=== PATIENT | female | born 1950 | race Caucasian/White ===

== ENCOUNTER 2017-11-28 13:22 | Inpatient (IN) ==
[2017-11-28] MEDS ORDERED: SODIUM CHLORIDE 0.9% 1,000 ML IV STA (13:57)
[2017-11-28] MEDS ORDERED: ONDANSETRON 4 MG/2 ML VIAL IV STA (13:57)
[2017-11-28 14:04] LABS: ABG Base Excess -10.4 MMOL/L (-2.5-2.5); ABG HCO3 16.5 MMOL/L (20-26); ABG Oxygen Saturation 99.6 % (95-100); ABG PCO2 32.2 MM HG (35-48); ABG PH 7.287 (7.35-7.45); ABG TCO2 13.3 MMOL/L (23-27)
[2017-11-28] MEDS ORDERED: SODIUM BICARBONATE 50 MEQ/50 ML VIAL IV STA (14:15)
[2017-11-28] MEDS ORDERED: SODIUM BICARBONATE 50 MEQ/50 ML SYRINGE IV ONE (14:58)
[2017-11-28 15:55] LABS: Basophils % 0.2 % (0.0-0.8); Eosinophils # 0.1 10*3/uL (0.0-0.87); Immature Granulocytes % 0.5 %; Immature Granulocytes Absolute 0.06 #; Lymphocytes # 0.8 10*3/uL (1.4-4.0); Lymphocytes % 6.2 % (21.3-54.2); Mean Corpuscular HGB Conc 34.9 GM/DL (32-36); Mean Corpuscular Hemoglobin 31 PG (27-34); Mean Corpuscular Volume 89.4 FL (87-102); Mean Platelet Volume 9.7 FL (9.6-12.0); Monocytes # 0.6 10*3/uL (0.11-0.8); Monocytes % 4.8 % (1.7-12.7); Neutrophils # 10.9 10*3/uL (1.4-7.4); Neutrophils % 87.3 % (38.7-73.9); Platelet Count 361 T/CUMM (130-400); Red Blood Count 4.81 MC/CUMM (3.8-5.5); Red Cell Distribution Width 14.5 % (9.3-17.3); White Blood Count 12.5 T/CUMM (4-12)
[2017-11-28 16:03] LABS: PT Patient Result 10.2 SECS
[2017-11-28 16:19] LABS: Salicylate < 2.8 MG/DL (2.8-20)
[2017-11-28 16:21] LABS: Acetaminophen < 2.0 UG/ML (10-30); Apearance,Urine CLEAR (Clear); Bilirubin,Urine Negative (Negative); Blood, Urine Negative (Negative); Glucose,Urine (UA) Negative (Negative); Ketones,Urine Negative (Negative); Mucus,Urine Occasional /LPF (Occasional); Nitrite,Urine Negative (Negative); Protein,Urine 30 MG/DL; RBC,Urine 13 /HPF (0-4); Renal Epithelial Cells,Urine Occasional /HPF (<1); Squamous Epithelial Cell,Urine Occasional /HPF (0-10); Urine Color Yellow (Yellow); Urine Specific Gravity 1.011 (1.001-1.035); Urine Urobilinogen < 2.0 EU/DL (0.2-1.0)
[2017-11-28 16:26] LABS: Alanine Aminotransferase 130 U/L (13-56); Albumin 3.4 G/DL (3.4-5.0); Alkaline Phosphatase 170 U/L (45-117); Aspartate Amino Transferase 219 U/L (0-37); Blood Urea Nitrogen 19 MG/DL (7-18); CKMB % 1.3 %; Calcium 7.8 MG/DL (8.5-10.1); Glucose 118 MG/DL (74-106); Osmolality,Calculated 288.8 MOS/KG (273-304); Potassium 3.1 MMOL/L (3.5-5.1); Sodium 144 MMOL/L (136-145); Total Protein 6.9 G/DL (6.4-8.3)
[2017-11-28 16:34] LABS: Barbiturates Screen,Urine Negative (Negative); Benzodiazepines Screen,Urine Positive (Negative); Cannabinoid Screen,Urine Negative (Negative); Opiate Screen,Urine Positive (Negative); Phencyclidine Screen,Urine Negative (Negative)
[2017-11-28] MEDS ORDERED: PROPOFOL 1,000 MG/100 ML BOTTLE IV ONE (16:59)
[2017-11-28] MEDS ORDERED: VECURONIUM 10 MG VIAL IV ONE (16:59)
[2017-11-28] MEDS ORDERED: VECURONIUM 10 MG VIAL IV STA (17:21)
[2017-11-28] MEDS: PROPOFOL 1,000 MG/100 ML BOTTLE IV SCH (17:30)
[2017-11-28] MEDS ORDERED: ALBUTEROL 2.5 MG/3 ML NEB RESP TX PRN ×2 (18:32→18:36)
[2017-11-28] MEDS ORDERED: ONDANSETRON 4 MG/2 ML VIAL IV PRN (18:32)
[2017-11-28] MEDS: ALBUTEROL/IPRATROPIUM 3 ML NEB RESP TX SCH (19:39)
[2017-11-28] MEDS: SODIUM CHLORIDE 0.9% 1,000 ML IV SCH (19:50)
[2017-11-28] MEDS ORDERED: PIPERACILLIN/TAZOBACTAM 3,375 MG VIAL IV ONE (19:52)
[2017-11-28] MEDS ORDERED: SODIUM CHLORIDE 0.9% 100 ML IV ONE (19:52)
[2017-11-28] MEDS: methylPREDNISolone SOD SUC 125 MG/2 ML VIAL IV SCH (19:56)
[2017-11-28] MEDS: PIPERACILLIN/TAZOBACTAM 3,375 MG in SODIUM CHLORIDE 0.9% 100 ML IV SCH (19:58)
[2017-11-28] MEDS: PANTOPRAZOLE 40 MG VIAL IV SCH (20:00)
[2017-11-28 21:58] LABS: ABG Base Excess -7.4 MMOL/L (-2.5-2.5); ABG HCO3 18.6 MMOL/L (20-26); ABG Oxygen Saturation 99.3 % (95-100); ABG PCO2 29.6 MM HG (35-48); ABG PH 7.359 (7.35-7.45); ABG TCO2 14.1 MMOL/L (23-27); Pt O2 Delivery Device Ventilator
[2017-11-28] MEDS: LEVOFLOXACIN INJ 750 MG in PREMIX 1 EACH IV SCH (22:04)
[2017-11-29] MEDS: methylPREDNISolone SOD SUC 125 MG/2 ML VIAL IV SCH ×4 (00:38→18:58)
[2017-11-29] MEDS: ALBUTEROL/IPRATROPIUM 3 ML NEB RESP TX SCH ×4 (00:57→19:36)
[2017-11-29] MEDS: PROPOFOL 1,000 MG/100 ML BOTTLE IV SCH ×6 (02:14→21:47)
[2017-11-29] MEDS: PIPERACILLIN/TAZOBACTAM 3,375 MG in SODIUM CHLORIDE 0.9% 100 ML IV SCH ×3 (02:17→18:59)
[2017-11-29 04:17] LABS: ABG Base Excess -5.7 MMOL/L (-2.5-2.5); ABG HCO3 19.8 MMOL/L (20-26); ABG Oxygen Saturation 99.8 % (95-100); ABG PCO2 28.4 MM HG (35-48); ABG PH 7.401 (7.35-7.45); ABG TCO2 15.1 MMOL/L (23-27); Allen Test Positive; Pt O2 Delivery Device Ventilator
[2017-11-29] MEDS: SODIUM CHLORIDE 0.9% 1,000 ML IV SCH ×3 (06:14→22:34)
[2017-11-29 06:27] LABS: Basophils % 0.1 % (0.0-0.8); Hematocrit 38.1 VOL% (35.7-47.0); Hemoglobin 13.8 GM/DL (12.0-16.0); Immature Granulocytes % 0.4 %; Immature Granulocytes Absolute 0.05 #; Lymphocytes # 0.4 10*3/uL (1.4-4.0); Lymphocytes % 3.1 % (21.3-54.2); Mean Corpuscular HGB Conc 36.2 GM/DL (32-36); Mean Corpuscular Hemoglobin 32 PG (27-34); Mean Platelet Volume 9.5 FL (9.6-12.0); Monocytes # 0.1 10*3/uL (0.11-0.8); Monocytes % 0.8 % (1.7-12.7); Neutrophils % 95.6 % (38.7-73.9); Platelet Count 338 T/CUMM (130-400); Red Blood Count 4.33 MC/CUMM (3.8-5.5); Red Cell Distribution Width 14.6 % (9.3-17.3); White Blood Count 11.5 T/CUMM (4-12)
[2017-11-29 06:50] LABS: Anisocytosis 1+; Band Neutrophils 15 % (0-10); Lymphocytes 5 % (20-55); Macrocytosis Slight; Platelet Estimate Normal; Segmented Neutrophils 79 % (50-85); Total Cells Counted 100
[2017-11-29 11:00] LABS: Albumin 2.8 G/DL (3.4-5.0); Bilirubin,Total 0.4 MG/DL (0.2-1.0); Calcium 7.5 MG/DL (8.5-10.1); Osmolality,Calculated 291.7 MOS/KG (273-304); Potassium 2.9 MMOL/L (3.5-5.1); Risk Ratio 3.53; Thyroid Stimulating Hormone 0.194 uIU/ml (0.358-3.74); Total Protein 6.4 G/DL (6.4-8.3); VLDL CHOLESTEROL 34.8 MG/DL
[2017-11-29] MEDS ORDERED: PNEUMOCOCCAL VACCINE (13 VALENT) 0.5 ML SYRINGE IM ONE (17:40)
[2017-11-29] MEDS: PANTOPRAZOLE 40 MG VIAL IV SCH (18:58)
[2017-11-29] MEDS: LEVOFLOXACIN INJ 750 MG in PREMIX 1 EACH IV SCH (22:34)
[2017-11-30] MEDS: ALBUTEROL/IPRATROPIUM 3 ML NEB RESP TX SCH ×4 (00:04→19:05)
[2017-11-30] MEDS: methylPREDNISolone SOD SUC 125 MG/2 ML VIAL IV SCH ×4 (01:30→18:18)
[2017-11-30] MEDS: PROPOFOL 1,000 MG/100 ML BOTTLE IV SCH ×6 (01:31→23:56)
[2017-11-30] MEDS: PIPERACILLIN/TAZOBACTAM 3,375 MG in SODIUM CHLORIDE 0.9% 100 ML IV SCH ×3 (03:34→18:17)
[2017-11-30 05:59] LABS: Hematocrit 32.8 VOL% (35.7-47.0); Hemoglobin 11.5 GM/DL (12.0-16.0); Immature Granulocytes % 0.6 %; Immature Granulocytes Absolute 0.06 #; Lymphocytes # 0.3 10*3/uL (1.4-4.0); Lymphocytes % 3.2 % (21.3-54.2); Mean Corpuscular HGB Conc 35.1 GM/DL (32-36); Mean Corpuscular Hemoglobin 32 PG (27-34); Mean Corpuscular Volume 89.9 FL (87-102); Mean Platelet Volume 10.1 FL (9.6-12.0); Monocytes # 0.2 10*3/uL (0.11-0.8); Monocytes % 1.6 % (1.7-12.7); Neutrophils # 9.9 10*3/uL (1.4-7.4); Neutrophils % 94.6 % (38.7-73.9); Platelet Count 282 T/CUMM (130-400); Red Blood Count 3.65 MC/CUMM (3.8-5.5); Red Cell Distribution Width 15.4 % (9.3-17.3); White Blood Count 10.4 T/CUMM (4-12)
[2017-11-30] MEDS: SODIUM CHLORIDE 0.9% 1,000 ML IV SCH ×3 (06:08→23:06)
[2017-11-30 06:18] LABS: Albumin 2.4 G/DL (3.4-5.0); Bilirubin,Total 0.6 MG/DL (0.2-1.0); Calcium 7.3 MG/DL (8.5-10.1); Osmolality,Calculated 299.1 MOS/KG (273-304); Potassium 2.6 MMOL/L (3.5-5.1); Total Protein 5.8 G/DL (6.4-8.3)
[2017-11-30 06:35] LABS: Anisocytosis 1+; Lymphocytes 2 % (20-55); Platelet Estimate Normal; Segmented Neutrophils 98 % (50-85); Total Cells Counted 100
[2017-11-30 08:12] LABS: Ferritin 88.3 ng/ml (8-252)
[2017-11-30 08:55] LABS: ABG Base Excess -7.5 MMOL/L (-2.5-2.5); ABG HCO3 18.4 MMOL/L (20-26); ABG Oxygen Saturation 99.5 % (95-100); ABG PCO2 23.5 MM HG (35-48); ABG PH 7.424 (7.35-7.45); ABG TCO2 13.6 MMOL/L (23-27)
[2017-11-30] MEDS: PANTOPRAZOLE 40 MG VIAL IV SCH (18:18)
[2017-11-30] MEDS: POTASSIUM CHLORIDE 20 MEQ/15 ML UDCUP PER TUBE PRN ×2 (20:18→23:20)
[2017-11-30] MEDS: LEVOFLOXACIN INJ 750 MG in PREMIX 1 EACH IV SCH (23:09)
[2017-12-01] MEDS: ALBUTEROL/IPRATROPIUM 3 ML NEB RESP TX SCH ×4 (00:32→19:10)
[2017-12-01] MEDS: methylPREDNISolone SOD SUC 125 MG/2 ML VIAL IV SCH ×2 (01:06→06:15)
[2017-12-01] MEDS: POTASSIUM CHLORIDE 20 MEQ/15 ML UDCUP PER TUBE PRN ×2 (01:07→03:03)
[2017-12-01] MEDS: PIPERACILLIN/TAZOBACTAM 3,375 MG in SODIUM CHLORIDE 0.9% 100 ML IV SCH ×3 (03:03→20:18)
[2017-12-01 03:52] LABS: Basophils % 0.1 % (0.0-0.8); Hematocrit 34.1 VOL% (35.7-47.0); Immature Granulocytes % 0.5 %; Immature Granulocytes Absolute 0.05 #; Lymphocytes # 0.4 10*3/uL (1.4-4.0); Lymphocytes % 3.7 % (21.3-54.2); Mean Corpuscular HGB Conc 35.2 GM/DL (32-36); Mean Corpuscular Hemoglobin 32 PG (27-34); Mean Corpuscular Volume 89.5 FL (87-102); Mean Platelet Volume 9.9 FL (9.6-12.0); Monocytes # 0.3 10*3/uL (0.11-0.8); Monocytes % 2.8 % (1.7-12.7); Neutrophils # 9.1 10*3/uL (1.4-7.4); Neutrophils % 92.9 % (38.7-73.9); Platelet Count 279 T/CUMM (130-400); Red Blood Count 3.81 MC/CUMM (3.8-5.5); Red Cell Distribution Width 15.7 % (9.3-17.3); White Blood Count 9.8 T/CUMM (4-12)
[2017-12-01] MEDS: PROPOFOL 1,000 MG/100 ML BOTTLE IV SCH ×2 (04:02→08:48)
[2017-12-01 04:11] LABS: ABG Base Excess -5.8 MMOL/L (-2.5-2.5); ABG HCO3 16.8 MMOL/L (20-26); ABG Oxygen Saturation 98.7 % (95-100); ABG PCO2 25.4 MM HG (35-48); ABG PH 7.438 (7.35-7.45); ABG PO2 199.6 MM HG (80-95); ABG TCO2 17.6 MMOL/L (23-27); Allen Test Positive; Pt O2 Delivery Device Ventilator
[2017-12-01 04:19] LABS: Lymphocytes 7 % (20-55); Platelet Estimate Normal; Segmented Neutrophils 92 % (50-85); Total Cells Counted 100
[2017-12-01 04:33] LABS: Albumin 2.6 G/DL (3.4-5.0); Bilirubin,Total 0.5 MG/DL (0.2-1.0); Calcium 7.4 MG/DL (8.5-10.1); Potassium 2.8 MMOL/L (3.5-5.1); Total Protein 6.3 G/DL (6.4-8.3)
[2017-12-01] MEDS ORDERED: POTASSIUM CHLORIDE INJ 20 MEQ in DEXTROSE 5% NACL 0.45% 1,000 ML IV SCH (08:30)
[2017-12-01] MEDS: methylPREDNISolone SOD SUC 40 MG/1 ML VIAL IV SCH ×3 (08:56→23:10)
[2017-12-01] MEDS: DEXT 5% NACL 0.45% KCL 20 MEQ 20 MEQ/1,000 ML BAG IV SCH ×2 (08:56→17:01)
[2017-12-01] MEDS: SODIUM CHLORIDE 0.9% 1,000 ML IV SCH (09:08)
[2017-12-01] MEDS: POTASSIUM CHLORIDE 20 MEQ PACK PO PRN ×4 (11:27→17:59)
[2017-12-01 12:07] LABS: ABG Base Excess -5.8 MMOL/L (-2.5-2.5); ABG HCO3 16.8 MMOL/L (20-26); ABG Oxygen Saturation 98.2 % (95-100); ABG PCO2 26.1 MM HG (35-48); ABG PH 7.427 (7.35-7.45); ABG PO2 121.4 MM HG (80-95); ABG TCO2 17.6 MMOL/L (23-27)
[2017-12-01] MEDS ORDERED: POTASSIUM CHLORIDE RIDER 20 MEQ in PREMIX 1 EACH IV PRN (16:02)
[2017-12-01] MEDS: PANTOPRAZOLE 40 MG VIAL IV SCH (20:17)
[2017-12-01] MEDS: DONEPEZIL 5 MG TABLET PO SCH (20:18)
[2017-12-02] MEDS: DEXT 5% NACL 0.45% KCL 20 MEQ 20 MEQ/1,000 ML BAG IV SCH ×2 (00:52→09:21)
[2017-12-02] MEDS: LEVOFLOXACIN INJ 750 MG in PREMIX 1 EACH IV SCH (00:52)
[2017-12-02] MEDS: ALBUTEROL/IPRATROPIUM 3 ML NEB RESP TX SCH ×4 (01:10→19:58)
[2017-12-02] MEDS: POTASSIUM CHLORIDE RIDER 10 MEQ in PREMIX 1 EACH IV PRN ×6 (01:30→07:27)
[2017-12-02] MEDS: PIPERACILLIN/TAZOBACTAM 3,375 MG in SODIUM CHLORIDE 0.9% 100 ML IV SCH ×3 (03:21→22:43)
[2017-12-02 03:40] LABS: ABG HCO3 21.9 MMOL/L (20-26); ABG Oxygen Saturation 96.5 % (95-100); ABG PCO2 27.9 MM HG (35-48); ABG PH 7.455 (7.35-7.45); ABG PO2 84.9 MM HG (80-95); ABG TCO2 17.2 MMOL/L (23-27)
[2017-12-02 04:43] LABS: Basophils % 0.2 % (0.0-0.8); Hematocrit 34.5 VOL% (35.7-47.0); Hemoglobin 12.6 GM/DL (12.0-16.0); Immature Granulocytes Absolute 0.11 #; Lymphocytes # 0.5 10*3/uL (1.4-4.0); Lymphocytes % 4.7 % (21.3-54.2); Mean Corpuscular HGB Conc 36.5 GM/DL (32-36); Mean Corpuscular Hemoglobin 32 PG (27-34); Mean Corpuscular Volume 86.9 FL (87-102); Mean Platelet Volume 10.2 FL (9.6-12.0); Monocytes # 0.5 10*3/uL (0.11-0.8); Monocytes % 4.5 % (1.7-12.7); Neutrophils # 9.6 10*3/uL (1.4-7.4); Neutrophils % 89.6 % (38.7-73.9); Platelet Count 307 T/CUMM (130-400); Red Blood Count 3.97 MC/CUMM (3.8-5.5); Red Cell Distribution Width 15.6 % (9.3-17.3); White Blood Count 10.7 T/CUMM (4-12)
[2017-12-02 05:02] LABS: Albumin 2.7 G/DL (3.4-5.0); Bilirubin,Total 0.6 MG/DL (0.2-1.0); Calcium 7.1 MG/DL (8.5-10.1); Potassium 2.8 MMOL/L (3.5-5.1); Total Protein 6.7 G/DL (6.4-8.3)
[2017-12-02 05:14] LABS: Band Neutrophils 1 % (0-10); Hypochromasia 1+; Lymphocytes 7 % (20-55); Ovalocytes Slight; Platelet Estimate Adequate; Segmented Neutrophils 89 % (50-85); Total Cells Counted 100
[2017-12-02] MEDS: QUEtiapine 25 MG TABLET PO SCH ×2 (09:20→22:42)
[2017-12-02] MEDS: methylPREDNISolone SOD SUC 40 MG/1 ML VIAL IV SCH (09:20)
[2017-12-02] MEDS ORDERED: MAGNESIUM SULF RIDER 4 GM in PREMIX 1 EACH IV PRN (10:45)
[2017-12-02] MEDS ORDERED: MAGNESIUM SULF RIDER 2 GM in PREMIX 1 EACH IV PRN (10:45)
[2017-12-02] MEDS: POTASSIUM CHLORIDE INJ 20 MEQ, MAGNESIUM SULF INJ 1 GM in DEXTROSE 5% NACL 0.45% 1,000 ML IV SCH (14:56)
[2017-12-02] MEDS: PANTOPRAZOLE 40 MG VIAL IV SCH (22:42)
[2017-12-02] MEDS: DONEPEZIL 5 MG TABLET PO SCH (22:42)
[2017-12-03] MEDS: ALBUTEROL/IPRATROPIUM 3 ML NEB RESP TX SCH ×4 (00:46→20:02)
[2017-12-03] MEDS: LEVOFLOXACIN INJ 750 MG in PREMIX 1 EACH IV SCH ×2 (03:10→21:27)
[2017-12-03 04:20] LABS: ABG Base Excess -2.5 MMOL/L (-2.5-2.5); ABG HCO3 20.4 MMOL/L (20-26); ABG Oxygen Saturation 95.8 % (95-100); ABG PCO2 30.2 MM HG (35-48); ABG PH 7.448 (7.35-7.45); ABG PO2 83.7 MM HG (80-95); ABG TCO2 21.4 MMOL/L (23-27); Allen Test Positive
[2017-12-03 05:45] LABS: Basophils % 0.4 % (0.0-0.8); Eosinophils # 0.1 10*3/uL (0.0-0.87); Eosinophils % 0.8 % (0.00-10.9); Hemoglobin 13.4 GM/DL (12.0-16.0); Immature Granulocytes % 1.6 %; Immature Granulocytes Absolute 0.12 #; Lymphocytes # 2.2 10*3/uL (1.4-4.0); Lymphocytes % 29.3 % (21.3-54.2); Mean Corpuscular HGB Conc 36.2 GM/DL (32-36); Mean Corpuscular Hemoglobin 32 PG (27-34); Mean Corpuscular Volume 87.5 FL (87-102); Mean Platelet Volume 9.8 FL (9.6-12.0); Monocytes # 0.8 10*3/uL (0.11-0.8); Monocytes % 9.9 % (1.7-12.7); Neutrophils # 4.4 10*3/uL (1.4-7.4); Platelet Count 285 T/CUMM (130-400); Red Blood Count 4.23 MC/CUMM (3.8-5.5); Red Cell Distribution Width 15.8 % (9.3-17.3); White Blood Count 7.5 T/CUMM (4-12)
[2017-12-03 06:02] LABS: Calcium 7.5 MG/DL (8.5-10.1); Osmolality,Calculated 288.6 MOS/KG (273-304)
[2017-12-03 06:04] LABS: Potassium 2.3 MMOL/L (3.5-5.1)
[2017-12-03] MEDS ORDERED: POTASSIUM CHLORIDE 20 MEQ TABLET PO STA (06:30)
[2017-12-03] MEDS: PIPERACILLIN/TAZOBACTAM 3,375 MG in SODIUM CHLORIDE 0.9% 100 ML IV SCH ×2 (06:37→17:16)
[2017-12-03] MEDS: POTASSIUM CHLORIDE INJ 20 MEQ, MAGNESIUM SULF INJ 1 GM in DEXTROSE 5% NACL 0.45% 1,000 ML IV SCH ×3 (06:39→18:00)
[2017-12-03] MEDS: methylPREDNISolone SOD SUC 40 MG/1 ML VIAL IV SCH (09:18)
[2017-12-03] MEDS: QUEtiapine 25 MG TABLET PO SCH ×2 (09:18→21:27)
[2017-12-03] MEDS: POTASSIUM CHLORIDE 20 MEQ PACK PO PRN ×4 (09:18→15:17)
[2017-12-03] MEDS: PANTOPRAZOLE 40 MG VIAL IV SCH (18:36)
[2017-12-03] MEDS: DONEPEZIL 5 MG TABLET PO SCH (21:27)
[2017-12-04] MEDS: POTASSIUM CHLORIDE 20 MEQ TABLET PO PRN ×4 (00:04→17:40)
[2017-12-04] MEDS: POTASSIUM CHLORIDE INJ 20 MEQ, MAGNESIUM SULF INJ 1 GM in DEXTROSE 5% NACL 0.45% 1,000 ML IV SCH ×2 (00:05→09:37)
[2017-12-04] MEDS: PIPERACILLIN/TAZOBACTAM 3,375 MG in SODIUM CHLORIDE 0.9% 100 ML IV SCH (00:37)
[2017-12-04] MEDS: ALBUTEROL/IPRATROPIUM 3 ML NEB RESP TX SCH ×4 (00:43→19:25)
[2017-12-04] MEDS: LORazepam 2 MG/1 ML VIAL IM PRN ×4 (02:42→21:41)
[2017-12-04 06:14] LABS: Basophils % 0.3 % (0.0-0.8); Eosinophils # 0.2 10*3/uL (0.0-0.87); Eosinophils % 2.3 % (0.00-10.9); Hematocrit 36.6 VOL% (35.7-47.0); Hemoglobin 12.7 GM/DL (12.0-16.0); Immature Granulocytes % 1.3 %; Lymphocytes # 1.8 10*3/uL (1.4-4.0); Lymphocytes % 23.5 % (21.3-54.2); Mean Corpuscular HGB Conc 34.7 GM/DL (32-36); Mean Corpuscular Hemoglobin 32 PG (27-34); Mean Platelet Volume 9.7 FL (9.6-12.0); Monocytes # 0.8 10*3/uL (0.11-0.8); Monocytes % 10.4 % (1.7-12.7); Neutrophils # 4.7 10*3/uL (1.4-7.4); Neutrophils % 62.2 % (38.7-73.9); Platelet Count 269 T/CUMM (130-400); Red Blood Count 4.02 MC/CUMM (3.8-5.5); Red Cell Distribution Width 15.7 % (9.3-17.3); White Blood Count 7.5 T/CUMM (4-12)
[2017-12-04 06:47] LABS: Calcium 7.5 MG/DL (8.5-10.1); Osmolality,Calculated 284.8 MOS/KG (273-304); Potassium 3.4 MMOL/L (3.5-5.1)
[2017-12-04 07:00] LABS: Albumin 2.8 G/DL (3.4-5.0); Bilirubin,Total 0.9 MG/DL (0.2-1.0); Calcium 7.9 MG/DL (8.5-10.1); Potassium 3.4 MMOL/L (3.5-5.1); Total Protein 6.3 G/DL (6.4-8.3)
[2017-12-04] MEDS: QUEtiapine 25 MG TABLET PO SCH ×2 (09:01→20:39)
[2017-12-04] MEDS: methylPREDNISolone SOD SUC 40 MG/1 ML VIAL IV SCH (09:02)
[2017-12-04] MEDS: ACYCLOVIR 5% OINT 5 GM TUBE TOP SCH ×4 (10:20→21:40)
[2017-12-04] MEDS: DEXT 5% NACL 0.45% KCL 20 MEQ 20 MEQ/1,000 ML BAG IV SCH ×2 (15:00→18:20)
[2017-12-04] MEDS: PANTOPRAZOLE 40 MG VIAL IV SCH (18:24)
[2017-12-04] MEDS: DONEPEZIL 5 MG TABLET PO SCH (20:39)
[2017-12-04] MEDS ORDERED: QUEtiapine 100 MG TABLET PO ONE (23:12)
[2017-12-04] MEDS ORDERED: QUEtiapine 25 MG TABLET PO ONE (23:30)
[2017-12-05] MEDS: ALBUTEROL/IPRATROPIUM 3 ML NEB RESP TX SCH ×2 (00:12→07:30)
[2017-12-05] MEDS: LORazepam 2 MG/1 ML VIAL IM PRN (03:17)
[2017-12-05] MEDS: DEXT 5% NACL 0.45% KCL 20 MEQ 20 MEQ/1,000 ML BAG IV SCH ×2 (04:15→09:17)
[2017-12-05] MEDS: ACYCLOVIR 5% OINT 5 GM TUBE TOP SCH ×2 (05:29→09:15)
[2017-12-05 06:40] LABS: Basophils % 0.1 % (0.0-0.8); Eosinophils # 0.2 10*3/uL (0.0-0.87); Eosinophils % 3.5 % (0.00-10.9); Hematocrit 36.1 VOL% (35.7-47.0); Hemoglobin 12.7 GM/DL (12.0-16.0); Immature Granulocytes % 0.7 %; Immature Granulocytes Absolute 0.05 #; Lymphocytes # 1.7 10*3/uL (1.4-4.0); Lymphocytes % 24.7 % (21.3-54.2); Mean Corpuscular HGB Conc 35.2 GM/DL (32-36); Mean Corpuscular Hemoglobin 32 PG (27-34); Mean Corpuscular Volume 89.8 FL (87-102); Mean Platelet Volume 10.6 FL (9.6-12.0); Monocytes # 0.6 10*3/uL (0.11-0.8); Monocytes % 8.2 % (1.7-12.7); Neutrophils # 4.3 10*3/uL (1.4-7.4); Neutrophils % 62.8 % (38.7-73.9); Platelet Count 218 T/CUMM (130-400); Red Blood Count 4.02 MC/CUMM (3.8-5.5); Red Cell Distribution Width 15.6 % (9.3-17.3); White Blood Count 6.9 T/CUMM (4-12)
[2017-12-05 07:20] LABS: Hypochromasia 1+; Microcytosis 1+; Ovalocytes Slight
[2017-12-05 07:21] LABS: Platelet Estimate Adequate
[2017-12-05 08:15] VITALS: BP 115/80
[2017-12-05] MEDS: QUEtiapine 25 MG TABLET PO SCH (09:14)
[2017-12-05] MEDS: methylPREDNISolone SOD SUC 40 MG/1 ML VIAL IV SCH (09:18)
== END 2017-12-05 10:30 | disposition home health service (06) | DRG 917 ==
LOC: EDUNIT# → EDBD → N.ED 13:22 → N.EDINP 18:29 → N.CC 20:47 → N.2E 12-02 13:20
PROVIDERS: ADMIT Family Medicine; ATTEND Family Medicine

== ENCOUNTER 2018-08-09 12:25 | Inpatient (IN) ==
[2018-08-09] MEDS ORDERED: ONDANSETRON 4 MG/2 ML VIAL IV STA (13:10)
[2018-08-09] MEDS ORDERED: SODIUM CHLORIDE 0.9% 1,000 ML IV STA (13:10)
[2018-08-09 13:52] LABS: Basophils % 0.3 % (0.0-0.8); Eosinophils % 0.2 % (0.00-10.9); Hematocrit 28.2 VOL% (35.7-47.0); Hemoglobin 9.6 GM/DL (12.0-16.0); Immature Granulocytes % 0.5 %; Immature Granulocytes Absolute 0.03 #; Lymphocytes # 0.7 10*3/uL (1.4-4.0); Lymphocytes % 11.4 % (21.3-54.2); Mean Corpuscular Volume 91.6 FL (87-102); Mean Platelet Volume 10.1 FL (9.6-12.0); Monocytes % 5.7 % (1.7-12.7); NRBC # 0.03 10*3/uL; Neutrophils % 81.9 % (38.7-73.9); Platelet Count 375 T/CUMM (130-400); Red Blood Count 3.08 MC/CUMM (3.8-5.5); Red Cell Distribution Width 15.9 % (9.3-17.3); White Blood Count 5.8 T/CUMM (4-12)
[2018-08-09 14:15] LABS: Calcium 8.3 MG/DL (8.5-10.1); Osmolality,Calculated 276.1 MOS/KG (273-304); Total Protein 7.1 G/DL (6.4-8.3)
[2018-08-09] MEDS ORDERED: ACETAMINOPHEN 325 MG TABLET PO PRN (14:43)
[2018-08-09] MEDS ORDERED: ONDANSETRON 4 MG/2 ML VIAL IV PRN (14:43)
[2018-08-09] MEDS ORDERED: DEXTROSE 5% NACL 0.9% 1,000 ML IV SCH ×2 (15:00→21:00)
[2018-08-09] MEDS: ENOXAPARIN 40 MG/0.4 ML SYRINGE SUBCUT SCH (16:32)
[2018-08-09] MEDS: DOCUSATE SODIUM 100 MG CAPSULE PO SCH (20:40)
[2018-08-10] MEDS ORDERED: DEXTROSE 5% NACL 0.9% 1,000 ML IV SCH (02:00)
[2018-08-10 07:12] LABS: Apearance,Urine CLEAR (Clear); Bacteria,Urine Occasional /HPF (Few); Bilirubin,Urine Negative (Negative); Blood, Urine Negative (Negative); Glucose,Urine (UA) Negative (Negative); Ketones,Urine 80 mg/dL (Negative); Mucus,Urine Occasional /LPF (Occasional); Nitrite,Urine Negative (Negative); Protein,Urine Negative; RBC,Urine 1 /HPF (0-4); Squamous Epithelial Cell,Urine Occasional /HPF (0-10); Urine Color Yellow (Yellow); Urine Specific Gravity 1.014 (1.001-1.035); Urine Urobilinogen < 2.0 EU/DL (0.2-1.0); WBC,Urine 2 /HPF (0-6)
[2018-08-10] MEDS ORDERED: FUROSEMIDE 20 MG TABLET PO SCH (09:00)
[2018-08-10] MEDS: DEXT 5% NACL 0.9% KCL 20 MEQ 20 MEQ/1,000 ML BAG IV SCH ×2 (09:34→18:38)
[2018-08-10] MEDS: DOCUSATE SODIUM 100 MG CAPSULE PO SCH ×2 (09:37→22:45)
[2018-08-10] MEDS: SPIRONOLACTONE 25 MG TABLET PO SCH (09:37)
[2018-08-10] MEDS: PANTOPRAZOLE 40 MG TABLET PO SCH (09:37)
[2018-08-10] MEDS: ESTROGENS (CONJ) 0.625 MG TABLET PO SCH (09:37)
[2018-08-10] MEDS: POTASSIUM CHLORIDE 20 MEQ TABLET PO SCH ×2 (09:38→22:45)
[2018-08-10] MEDS ORDERED: DONEPEZIL 5 MG TABLET PO SCH (21:00)
[2018-08-10] MEDS: MEMANTINE 5 MG TABLET PO SCH (22:45)
[2018-08-10] MEDS: DONEPEZIL 10 MG TABLET PO SCH (22:45)
[2018-08-10] MEDS: ENOXAPARIN 40 MG/0.4 ML SYRINGE SUBCUT SCH (22:45)
[2018-08-11] MEDS: DEXT 5% NACL 0.9% KCL 20 MEQ 20 MEQ/1,000 ML BAG IV SCH (02:20)
[2018-08-11 05:08] LABS: Basophils % 0.3 % (0.0-0.8); Eosinophils % 0.5 % (0.00-10.9); Immature Granulocytes % 0.5 %; Immature Granulocytes Absolute 0.02 #; Lymphocytes # 1.1 10*3/uL (1.4-4.0); Lymphocytes % 27.8 % (21.3-54.2); Mean Corpuscular HGB Conc 33.5 GM/DL (32-36); Mean Corpuscular Volume 93.2 FL (87-102); Monocytes % 6.1 % (1.7-12.7); Neutrophils % 64.8 % (38.7-73.9); Platelet Count 292 T/CUMM (130-400); Red Blood Count 1.92 MC/CUMM (3.8-5.5); Red Cell Distribution Width 16.5 % (9.3-17.3); White Blood Count 3.9 T/CUMM (4-12)
[2018-08-11 05:15] LABS: Hematocrit 17.9 VOL% (35.7-47.0)
[2018-08-11 05:35] LABS: Risk Ratio 3.14; VLDL CHOLESTEROL 25.6 MG/DL
[2018-08-11 05:49] LABS: Alanine Aminotransferase < 9 U/L (13-56); Albumin 2.1 G/DL (3.4-5.0); Alkaline Phosphatase 50 U/L (45-117); Aspartate Amino Transferase 13 U/L (0-37); Blood Urea Nitrogen 10 MG/DL (7-18); Calcium 7.2 MG/DL (8.5-10.1); Glucose 112 MG/DL (74-106); Thyroid Stimulating Hormone 0.629 uIU/ml (0.358-3.74); Total Protein 4.8 G/DL (6.4-8.3)
[2018-08-11 06:07] LABS: Basophils % 0.3 % (0.0-0.8); Eosinophils % 0.8 % (0.00-10.9); Immature Granulocytes % 0.5 %; Immature Granulocytes Absolute 0.02 #; Lymphocytes # 1.2 10*3/uL (1.4-4.0); Lymphocytes % 31.3 % (21.3-54.2); Mean Corpuscular HGB Conc 33.9 GM/DL (32-36); Mean Corpuscular Volume 93.5 FL (87-102); Mean Platelet Volume 9.8 FL (9.6-12.0); Monocytes % 6.9 % (1.7-12.7); Neutrophils % 60.2 % (38.7-73.9); Platelet Count 280 T/CUMM (130-400); Red Blood Count 1.86 MC/CUMM (3.8-5.5); Red Cell Distribution Width 16.5 % (9.3-17.3); White Blood Count 3.8 T/CUMM (4-12)
[2018-08-11 06:11] LABS: Hematocrit 17.4 VOL% (35.7-47.0); Hemoglobin 5.9 GM/DL (12.0-16.0)
[2018-08-11] MEDS ORDERED: SODIUM CHLORIDE 0.9% 1,000 ML IV PRN (07:35)
[2018-08-11] MEDS ORDERED: SODIUM CHLORIDE 0.9% 1,000 ML IV ONE ×2 (07:35→08:00)
[2018-08-11 08:41] LABS: Basophils % 0.3 % (0.0-0.8); Immature Granulocytes % 0.5 %; Immature Granulocytes Absolute 0.02 #; Lymphocytes # 1.2 10*3/uL (1.4-4.0); Mean Corpuscular HGB Conc 33.5 GM/DL (32-36); Mean Corpuscular Volume 94.2 FL (87-102); Mean Platelet Volume 9.7 FL (9.6-12.0); Monocytes % 8.3 % (1.7-12.7); NRBC # 0.02 10*3/uL; Neutrophils % 58.9 % (38.7-73.9); Platelet Count 280 T/CUMM (130-400); Red Cell Distribution Width 16.7 % (9.3-17.3); White Blood Count 3.8 T/CUMM (4-12)
[2018-08-11 08:47] LABS: Hematocrit 17.9 VOL% (35.7-47.0)
[2018-08-11 09:29] LABS: Folate > 24.0 NG/ML (5.4-24.0); Vitamin B12 299 PG/ML (211-911)
[2018-08-11 09:51] LABS: Sedimentation Rate-Westergren 55 MM/HR (0-30)
[2018-08-11] MEDS: DOCUSATE SODIUM 100 MG CAPSULE PO SCH ×2 (10:33→21:17)
[2018-08-11] MEDS: PANTOPRAZOLE 40 MG TABLET PO SCH (10:34)
[2018-08-11] MEDS: ESTROGENS (CONJ) 0.625 MG TABLET PO SCH (10:34)
[2018-08-11] MEDS: POTASSIUM CHLORIDE 20 MEQ TABLET PO SCH ×2 (10:34→21:24)
[2018-08-11] MEDS: MEMANTINE 5 MG TABLET PO SCH ×2 (10:34→21:17)
[2018-08-11] MEDS: SPIRONOLACTONE 25 MG TABLET PO SCH (10:35)
[2018-08-11] MEDS: POTASSIUM CHLORIDE INJ 20 MEQ, MAGNESIUM SULF INJ 1 GM in DEXTROSE 5% NACL 0.9% 1,000 ML IV SCH ×2 (18:34→18:35)
[2018-08-11 18:52] LABS: Hematocrit 31.3 VOL% (35.7-47.0); Hemoglobin 10.4 GM/DL (12.0-16.0)
[2018-08-11] MEDS: DONEPEZIL 10 MG TABLET PO SCH (21:17)
[2018-08-11] MEDS: ENOXAPARIN 40 MG/0.4 ML SYRINGE SUBCUT SCH (21:17)
[2018-08-12] MEDS ORDERED: HALOPERIDOL 5 MG/ML AMP IV PRN (00:45)
[2018-08-12] MEDS: POTASSIUM CHLORIDE INJ 20 MEQ, MAGNESIUM SULF INJ 1 GM in DEXTROSE 5% NACL 0.9% 1,000 ML IV SCH ×3 (01:19→23:35)
[2018-08-12 04:33] LABS: Basophils % 0.6 % (0.0-0.8); Eosinophils # 0.1 10*3/uL (0.0-0.87); Eosinophils % 1.4 % (0.00-10.9); Hematocrit 29.5 VOL% (35.7-47.0); Hemoglobin 9.6 GM/DL (12.0-16.0); Immature Granulocytes % 0.3 %; Immature Granulocytes Absolute 0.01 #; Lymphocytes # 1.4 10*3/uL (1.4-4.0); Mean Corpuscular HGB Conc 32.5 GM/DL (32-36); Mean Corpuscular Volume 90.5 FL (87-102); Mean Platelet Volume 9.4 FL (9.6-12.0); Monocytes % 8.7 % (1.7-12.7); Platelet Count 235 T/CUMM (130-400); Red Blood Count 3.26 MC/CUMM (3.8-5.5); Red Cell Distribution Width 16.6 % (9.3-17.3); White Blood Count 3.6 T/CUMM (4-12)
[2018-08-12 05:07] LABS: Alanine Aminotransferase < 9 U/L (13-56); Albumin 2.3 G/DL (3.4-5.0); Alkaline Phosphatase 57 U/L (45-117); Aspartate Amino Transferase 14 U/L (0-37); Blood Urea Nitrogen 5 MG/DL (7-18); Glucose 100 MG/DL (74-106); Osmolality,Calculated 282.8 MOS/KG (273-304); Total Protein 5.2 G/DL (6.4-8.3)
[2018-08-12] MEDS ORDERED: LACTATED RINGERS 500 ML IV SCH (09:00)
[2018-08-12] MEDS ORDERED: LIDOCAINE 2% 5 ML VIAL ONE (09:00)
[2018-08-12] MEDS ORDERED: PROPOFOL 200 MG/20 ML VIAL IV ONE (09:00)
[2018-08-12] MEDS ORDERED: ETOMIDATE 20 MG/10 ML VIAL IV ONE (09:00)
[2018-08-12 09:17] LABS: Hemoglobin A1 (Alkaline) 97.3 % (96.5-98.5); Hemoglobin A2 (Alkaline) 2.7 % (1.5-3.5)
[2018-08-12] MEDS: SPIRONOLACTONE 25 MG TABLET PO SCH (10:11)
[2018-08-12] MEDS: DOCUSATE SODIUM 100 MG CAPSULE PO SCH ×2 (10:11→21:11)
[2018-08-12] MEDS: MEMANTINE 5 MG TABLET PO SCH ×2 (10:12→21:12)
[2018-08-12] MEDS: PANTOPRAZOLE 40 MG TABLET PO SCH (10:12)
[2018-08-12] MEDS: MEGESTROL 400 MG/10 ML UDCUP PO SCH ×2 (10:12→21:12)
[2018-08-12] MEDS: POTASSIUM CHLORIDE 20 MEQ TABLET PO SCH ×2 (10:12→21:11)
[2018-08-12] MEDS: ESTROGENS (CONJ) 0.625 MG TABLET PO SCH (10:12)
[2018-08-12] MEDS: DONEPEZIL 10 MG TABLET PO SCH (21:11)
[2018-08-12] MEDS: ENOXAPARIN 40 MG/0.4 ML SYRINGE SUBCUT SCH (21:12)
[2018-08-12] MEDS: POTASSIUM CHLORIDE 20 MEQ/15 ML UDCUP PO SCH (22:31)
[2018-08-13 06:09] LABS: Basophils % 0.2 % (0.0-0.8); Eosinophils # 0.1 10*3/uL (0.0-0.87); Eosinophils % 1.2 % (0.00-10.9); Hematocrit 29.7 VOL% (35.7-47.0); Hemoglobin 10.2 GM/DL (12.0-16.0); Immature Granulocytes % 0.5 %; Immature Granulocytes Absolute 0.02 #; Lymphocytes % 24.3 % (21.3-54.2); Mean Corpuscular HGB Conc 34.3 GM/DL (32-36); Mean Corpuscular Volume 86.6 FL (87-102); Mean Platelet Volume 9.4 FL (9.6-12.0); Monocytes % 6.5 % (1.7-12.7); NRBC # 0.02 10*3/uL; Neutrophils % 67.3 % (38.7-73.9); Platelet Count 267 T/CUMM (130-400); Red Blood Count 3.43 MC/CUMM (3.8-5.5); Red Cell Distribution Width 16.9 % (9.3-17.3); White Blood Count 4.2 T/CUMM (4-12)
[2018-08-13 06:32] LABS: Albumin 2.1 G/DL (3.4-5.0); Bilirubin,Total 0.5 MG/DL (0.2-1.0); Calcium 6.7 MG/DL (8.5-10.1); Osmolality,Calculated 276.4 MOS/KG (273-304); Total Protein 4.9 G/DL (6.4-8.3)
[2018-08-13] MEDS: POTASSIUM CHLORIDE INJ 20 MEQ, MAGNESIUM SULF INJ 1 GM in DEXTROSE 5% NACL 0.9% 1,000 ML IV SCH (07:56)
[2018-08-13] MEDS: ESTROGENS (CONJ) 0.625 MG TABLET PO SCH (09:06)
[2018-08-13] MEDS: PANTOPRAZOLE 40 MG TABLET PO SCH (09:06)
[2018-08-13] MEDS: SPIRONOLACTONE 25 MG TABLET PO SCH (09:06)
[2018-08-13] MEDS: DOCUSATE SODIUM 100 MG CAPSULE PO SCH (09:06)
[2018-08-13] MEDS: POTASSIUM CHLORIDE 20 MEQ/15 ML UDCUP PO SCH (09:07)
[2018-08-13] MEDS: MEMANTINE 5 MG TABLET PO SCH (09:07)
[2018-08-13] MEDS: MEGESTROL 400 MG/10 ML UDCUP PO SCH (09:07)
[2018-08-13] MEDS: POTASSIUM CHLORIDE RIDER 10 MEQ in PREMIX 1 EACH IV PRN ×4 (09:08→13:03)
[2018-08-13 12:34] VITALS: BP 98/75
[2018-08-13] MEDS ORDERED: PANTOPRAZOLE 40 MG TABLET PO SCH (21:00)
== END 2018-08-13 15:57 | disposition home or self-care (01) | DRG 377 ==
LOC: N.ED 12:25 → N.EDINP 12:25 → N.2E 16:55
PROVIDERS: ADMIT Family Medicine; ATTEND Family Medicine

== ENCOUNTER 2018-08-24 14:45 | Inpatient (IN) ==
[2018-08-24 16:38] LABS: Basophils % 0.4 % (0.0-0.8); Eosinophils % 0.5 % (0.00-10.9); Hematocrit 30.5 VOL% (35.7-47.0); Hemoglobin 10.3 GM/DL (12.0-16.0); Immature Granulocytes % 0.4 %; Immature Granulocytes Absolute 0.02 #; Lymphocytes # 0.9 10*3/uL (1.4-4.0); Lymphocytes % 15.4 % (21.3-54.2); Mean Corpuscular HGB Conc 33.8 GM/DL (32-36); Mean Platelet Volume 9.3 FL (9.6-12.0); Monocytes % 6.9 % (1.7-12.7); NRBC # 0.02 10*3/uL; Neutrophils % 76.4 % (38.7-73.9); Platelet Count 598 T/CUMM (130-400); Red Blood Count 3.28 MC/CUMM (3.8-5.5); Red Cell Distribution Width 22.6 % (9.3-17.3); White Blood Count 5.6 T/CUMM (4-12)
[2018-08-24 17:08] LABS: Albumin 3.3 G/DL (3.4-5.0); Bilirubin,Total 0.8 MG/DL (0.2-1.0); Calcium 8.3 MG/DL (8.5-10.1); Osmolality,Calculated 276.7 MOS/KG (273-304); Total Protein 7.3 G/DL (6.4-8.3)
[2018-08-24 18:23] LABS: Hypochromasia 1+
[2018-08-24 18:24] LABS: Burr Cells Few
[2018-08-24 18:25] LABS: Anisocytosis 1+; Giant Platelets Few; Polychromasia Few
[2018-08-24] MEDS ORDERED: SODIUM CHLORIDE 0.9% 1,000 ML IV STA (18:50)
[2018-08-24] MEDS ORDERED: PANTOPRAZOLE 40 MG VIAL IV STA (18:51)
[2018-08-24] MEDS ORDERED: POTASSIUM CHLORIDE 20 MEQ TABLET PO STA (18:51)
[2018-08-24] MEDS ORDERED: METOCLOPRAMIDE 10 MG/2 ML VIAL IV STA (18:51)
[2018-08-24] MEDS ORDERED: ONDANSETRON 4 MG/2 ML VIAL IV STA (18:51)
[2018-08-24] MEDS ORDERED: LOPERAMIDE 2 MG CAPSULE PO STA (19:05)
[2018-08-24 20:36] LABS: Apearance,Urine CLEAR (Clear); Bacteria,Urine Occasional /HPF (Few); Bilirubin,Urine Negative (Negative); Blood, Urine Negative (Negative); Glucose,Urine (UA) Negative (Negative); Ketones,Urine 80 mg/dL (Negative); Mucus,Urine Occasional /LPF (Occasional); Nitrite,Urine Negative (Negative); Protein,Urine 30 MG/DL; RBC,Urine <1 /HPF (0-4); Squamous Epithelial Cell,Urine Occasional /HPF (0-10); Urine Color Yellow (Yellow); Urine Specific Gravity 1.018 (1.001-1.035); WBC,Urine <1 /HPF (0-6)
[2018-08-24] MEDS ORDERED: metroNIDAZOLE INJ 500 MG in PREMIX 1 EACH IV STA (20:44)
[2018-08-24] MEDS ORDERED: ONDANSETRON 4 MG/2 ML VIAL IV PRN (20:57)
[2018-08-24] MEDS: METOCLOPRAMIDE 10 MG/2 ML VIAL IV SCH (23:56)
[2018-08-24] MEDS: SODIUM CHLOR 0.9% KCL 40 MEQ 40 MEQ/1,000 ML BAG IV SCH (23:56)
[2018-08-24] MEDS: SODIUM CHLORIDE 0.9% 1,000 ML IV SCH (23:59)
[2018-08-24] MEDS: SODIUM CHLORIDE 0.45% 1,000 ML IV SCH (23:59)
[2018-08-25] MEDS: metroNIDAZOLE INJ 500 MG in PREMIX 1 EACH IV SCH ×4 (03:54→21:59)
[2018-08-25 04:28] LABS: Basophils % 0.3 % (0.0-0.8); Eosinophils % 0.5 % (0.00-10.9); Hematocrit 22.6 VOL% (35.7-47.0); Hemoglobin 7.6 GM/DL (12.0-16.0); Immature Granulocytes % 0.3 %; Immature Granulocytes Absolute 0.02 #; Lymphocytes # 1.7 10*3/uL (1.4-4.0); Mean Corpuscular HGB Conc 33.6 GM/DL (32-36); Mean Platelet Volume 9.8 FL (9.6-12.0); Monocytes % 9.4 % (1.7-12.7); NRBC # 0.03 10*3/uL; Neutrophils % 60.5 % (38.7-73.9); Platelet Count 394 T/CUMM (130-400); Red Blood Count 2.43 MC/CUMM (3.8-5.5); White Blood Count 5.8 T/CUMM (4-12)
[2018-08-25 04:41] LABS: INR 1.1; PT Patient Result 12.3 SECS; Partial Thromboplastin Time 22.9 SECS (0-40)
[2018-08-25] MEDS: METOCLOPRAMIDE 10 MG/2 ML VIAL IV SCH ×3 (05:30→18:16)
[2018-08-25] MEDS: SODIUM CHLORIDE 0.45% 1,000 ML IV SCH (05:34)
[2018-08-25] MEDS: SODIUM CHLORIDE 0.9% 1,000 ML IV SCH (05:35)
[2018-08-25 05:56] LABS: Anisocytosis 1+; Hypochromasia 1+; Microcytosis Slight
[2018-08-25 05:57] LABS: Platelet Estimate Adequate
[2018-08-25] MEDS: POTASSIUM CHLORIDE 20 MEQ TABLET PO PRN ×3 (06:35→15:06)
[2018-08-25] MEDS ORDERED: POTASSIUM CHLORIDE IV SCH (08:15)
[2018-08-25] MEDS ORDERED: SODIUM CHLORIDE 0.45% IV SCH (08:15)
[2018-08-25] MEDS: PANTOPRAZOLE 40 MG VIAL IV SCH (08:35)
[2018-08-25] MEDS: SODIUM CHLOR 0.9% KCL 40 MEQ 40 MEQ/1,000 ML BAG IV SCH (08:48)
[2018-08-25 09:41] LABS: Basophils % 0.2 % (0.0-0.8); Eosinophils % 0.4 % (0.00-10.9); Hematocrit 23.2 VOL% (35.7-47.0); Hemoglobin 7.6 GM/DL (12.0-16.0); Immature Granulocytes % 0.7 %; Immature Granulocytes Absolute 0.04 #; Lymphocytes # 1.3 10*3/uL (1.4-4.0); Lymphocytes % 23.7 % (21.3-54.2); Mean Corpuscular HGB Conc 32.8 GM/DL (32-36); Mean Corpuscular Volume 94.7 FL (87-102); Mean Platelet Volume 9.5 FL (9.6-12.0); Monocytes % 8.5 % (1.7-12.7); Neutrophils % 66.5 % (38.7-73.9); Platelet Count 386 T/CUMM (130-400); Red Blood Count 2.45 MC/CUMM (3.8-5.5); Red Cell Distribution Width 23.3 % (9.3-17.3); White Blood Count 5.4 T/CUMM (4-12)
[2018-08-25] MEDS: SODIUM CHLOR 0.45% KCL 20 MEQ 20 MEQ/1,000 ML BAG IV SCH ×2 (09:50→19:01)
[2018-08-25] MEDS ORDERED: SODIUM CHLORIDE 0.9% 1,000 ML IV PRN ×2 (09:56→09:58)
[2018-08-25 10:38] LABS: Hypochromasia 1+
[2018-08-25 10:39] LABS: Anisocytosis 1+; Microcytosis 1+; Ovalocytes Slight; Platelet Estimate Normal
[2018-08-25] MEDS: FUROSEMIDE 20 MG TABLET PO SCH (15:06)
[2018-08-25] MEDS: SPIRONOLACTONE 25 MG TABLET PO SCH (15:06)
[2018-08-25] MEDS: MEGESTROL 400 MG/10 ML UDCUP PO SCH ×2 (15:07→21:20)
[2018-08-25] MEDS: MEMANTINE 5 MG TABLET PO SCH ×2 (15:07→21:20)
[2018-08-25] MEDS: ESTROGENS (CONJ) 0.625 MG TABLET PO SCH (15:07)
[2018-08-25] MEDS ORDERED: DONEPEZIL 10 MG TABLET PO SCH (21:00)
[2018-08-25] MEDS: DONEPEZIL 5 MG TABLET PO SCH (21:20)
[2018-08-26] MEDS: METOCLOPRAMIDE 10 MG/2 ML VIAL IV SCH ×2 (00:28→06:58)
[2018-08-26] MEDS: SODIUM CHLOR 0.45% KCL 20 MEQ 20 MEQ/1,000 ML BAG IV SCH ×2 (03:23→15:51)
[2018-08-26] MEDS: metroNIDAZOLE INJ 500 MG in PREMIX 1 EACH IV SCH (03:35)
[2018-08-26] MEDS: POTASSIUM CHLORIDE 20 MEQ TABLET PO PRN ×3 (03:35→15:03)
[2018-08-26 05:41] LABS: Basophils % 0.7 % (0.0-0.8); Eosinophils # 0.1 10*3/uL (0.0-0.87); Eosinophils % 1.7 % (0.00-10.9); Hematocrit 31.1 VOL% (35.7-47.0); Hemoglobin 10.7 GM/DL (12.0-16.0); Immature Granulocytes Absolute 0.04 #; Lymphocytes # 1.3 10*3/uL (1.4-4.0); Lymphocytes % 31.6 % (21.3-54.2); Mean Corpuscular HGB Conc 34.4 GM/DL (32-36); Mean Corpuscular Volume 89.1 FL (87-102); Mean Platelet Volume 9.3 FL (9.6-12.0); Monocytes % 10.5 % (1.7-12.7); NRBC # 0.02 10*3/uL; Neutrophils % 54.5 % (38.7-73.9); Platelet Count 308 T/CUMM (130-400); Red Blood Count 3.49 MC/CUMM (3.8-5.5); Red Cell Distribution Width 20.4 % (9.3-17.3); White Blood Count 4.2 T/CUMM (4-12)
[2018-08-26] MEDS ORDERED: MAGNESIUM SULF RIDER 2 GM in PREMIX 1 EACH IV PRN (06:30)
[2018-08-26] MEDS ORDERED: MAGNESIUM SULF RIDER 4 GM in PREMIX 1 EACH IV PRN (06:30)
[2018-08-26 08:41] LABS: Albumin 2.6 G/DL (3.4-5.0); Bilirubin,Total 0.9 MG/DL (0.2-1.0); Calcium 6.7 MG/DL (8.5-10.1); Osmolality,Calculated 273.7 MOS/KG (273-304)
[2018-08-26] MEDS: FUROSEMIDE 20 MG TABLET PO SCH (09:52)
[2018-08-26] MEDS: MEMANTINE 5 MG TABLET PO SCH ×2 (09:52→20:49)
[2018-08-26] MEDS: ESTROGENS (CONJ) 0.625 MG TABLET PO SCH (09:52)
[2018-08-26] MEDS: SPIRONOLACTONE 25 MG TABLET PO SCH (09:53)
[2018-08-26] MEDS: QUEtiapine 25 MG TABLET PO SCH ×2 (09:53→20:49)
[2018-08-26] MEDS: PANTOPRAZOLE 40 MG VIAL IV SCH (09:56)
[2018-08-26] MEDS: MEGESTROL 400 MG/10 ML UDCUP PO SCH ×2 (10:08→20:49)
[2018-08-26] MEDS ORDERED: tiZANidine 4 MG TABLET PO PRN (19:46)
[2018-08-26] MEDS: DONEPEZIL 5 MG TABLET PO SCH (20:49)
[2018-08-27] MEDS: SODIUM CHLOR 0.45% KCL 20 MEQ 20 MEQ/1,000 ML BAG IV SCH ×2 (04:03→13:33)
[2018-08-27 06:07] LABS: Basophils % 0.3 % (0.0-0.8); Eosinophils # 0.1 10*3/uL (0.0-0.87); Eosinophils % 1.5 % (0.00-10.9); Hematocrit 30.3 VOL% (35.7-47.0); Hemoglobin 10.4 GM/DL (12.0-16.0); Immature Granulocytes % 1.2 %; Immature Granulocytes Absolute 0.04 #; Lymphocytes # 1.1 10*3/uL (1.4-4.0); Lymphocytes % 35.2 % (21.3-54.2); Mean Corpuscular HGB Conc 34.3 GM/DL (32-36); Mean Corpuscular Volume 89.9 FL (87-102); Mean Platelet Volume 9.7 FL (9.6-12.0); Monocytes % 9.6 % (1.7-12.7); NRBC # 0.02 10*3/uL; Neutrophils % 52.2 % (38.7-73.9); Platelet Count 296 T/CUMM (130-400); Red Blood Count 3.37 MC/CUMM (3.8-5.5); Red Cell Distribution Width 21.1 % (9.3-17.3); White Blood Count 3.2 T/CUMM (4-12)
[2018-08-27] MEDS: MEMANTINE 5 MG TABLET PO SCH ×2 (09:07→22:01)
[2018-08-27] MEDS: MEGESTROL 400 MG/10 ML UDCUP PO SCH ×2 (09:07→22:02)
[2018-08-27] MEDS: FUROSEMIDE 20 MG TABLET PO SCH (09:07)
[2018-08-27] MEDS: SPIRONOLACTONE 25 MG TABLET PO SCH (09:07)
[2018-08-27] MEDS: ESTROGENS (CONJ) 0.625 MG TABLET PO SCH (09:08)
[2018-08-27] MEDS: QUEtiapine 25 MG TABLET PO SCH ×2 (09:08→22:02)
[2018-08-27] MEDS ORDERED: BISACODYL 5 MG TABLET PO ONE (10:13)
[2018-08-27] MEDS ORDERED: POLYETHYLENE GLYCOL POWDER 255 GM BOTTLE PO ONE (12:00)
[2018-08-27] MEDS: PANTOPRAZOLE 40 MG VIAL IV SCH (13:08)
[2018-08-27] MEDS: DONEPEZIL 5 MG TABLET PO SCH (22:01)
[2018-08-27] MEDS ORDERED: LORazepam 2 MG/1 ML VIAL IV ONE (22:21)
[2018-08-28 00:27] VITALS: BP 117/67
[2018-08-28] MEDS ORDERED: LACTATED RINGERS 500 ML IV SCH (08:00)
== END 2018-08-28 00:42 | disposition left against medical advice (07) | DRG 378 ==
LOC: N.ED 14:45 → N.TELEN 20:34 → N.EDINP 20:54 → N.TELEN 22:28
PROVIDERS: ADMIT Family Medicine; ATTEND Family Medicine

== ENCOUNTER 2018-08-31 21:47 | Inpatient (IN) ==
[2018-08-31] MEDS ORDERED: SODIUM CHLORIDE 0.9% 1,000 ML IV STA (22:39)
[2018-08-31 22:45] LABS: Basophils % 0.3 % (0.0-0.8); Eosinophils % 0.4 % (0.00-10.9); Hemoglobin 13.2 GM/DL (12.0-16.0); Immature Granulocytes % 0.5 %; Immature Granulocytes Absolute 0.04 #; Lymphocytes # 1.1 10*3/uL (1.4-4.0); Lymphocytes % 14.2 % (21.3-54.2); Mean Corpuscular HGB Conc 33.8 GM/DL (32-36); Mean Corpuscular Volume 91.3 FL (87-102); Mean Platelet Volume 9.7 FL (9.6-12.0); Monocytes % 8.4 % (1.7-12.7); Neutrophils % 76.2 % (38.7-73.9); Platelet Count 323 T/CUMM (130-400); Red Blood Count 4.27 MC/CUMM (3.8-5.5); White Blood Count 7.9 T/CUMM (4-12)
[2018-08-31 23:12] LABS: Apearance,Urine CLOUDY (Clear); Bacteria,Urine Many /HPF (Few); Bilirubin,Urine Negative (Negative); Blood, Urine Small mg/dL (Negative); Glucose,Urine (UA) Negative (Negative); Ketones,Urine 20 mg/dL (Negative); Mucus,Urine Few /LPF (Occasional); Nitrite,Urine Negative (Negative); Protein,Urine 100 MG/DL; RBC,Urine 13 /HPF (0-4); Squamous Epithelial Cell,Urine Occasional /HPF (0-10); Urine Color Amber (Yellow); Urine Specific Gravity 1.019 (1.001-1.035); WBC,Urine 218 /HPF (0-6)
[2018-08-31 23:12] LABS: Atypical Lymphocytes 1+; Reactive Lymphocytes 2+
[2018-08-31 23:13] LABS: Anisocytosis 1+; Macrocytosis 1+; Platelet Estimate Normal
[2018-08-31 23:15] LABS: Barbiturates Screen,Urine Negative (Negative); Benzodiazepines Screen,Urine Negative (Negative); Cannabinoid Screen,Urine Negative (Negative); Opiate Screen,Urine Negative (Negative); Phencyclidine Screen,Urine Negative (Negative)
[2018-08-31 23:25] LABS: Albumin 3.2 G/DL (3.4-5.0); Bilirubin,Total 0.9 MG/DL (0.2-1.0); Calcium 8.1 MG/DL (8.5-10.1); Osmolality,Calculated 279.7 MOS/KG (273-304); Total Protein 6.4 G/DL (6.4-8.3)
[2018-08-31 23:50] LABS: Sedimentation Rate-Westergren 36 MM/HR (0-30)
[2018-09-01] MEDS ORDERED: cefTRIAXone 1,000 MG in SODIUM CHLORIDE 0.9% 100 ML IV STA (00:12)
[2018-09-01] MEDS ORDERED: LORazepam 2 MG/1 ML VIAL IV ONE (05:35)
[2018-09-01] MEDS ORDERED: [UNRECOGNIZED DRUG - OTHER] PO SCH (09:00)
[2018-09-01] MEDS ORDERED: SODIUM CHLOR 0.45% KCL 20 MEQ 20 MEQ/1,000 ML BAG IV SCH (10:30)
[2018-09-01] MEDS ORDERED: QUEtiapine 25 MG TABLET PO ONE (11:30)
[2018-09-01] MEDS ORDERED: cefTRIAXone 1,000 MG in SYRINGE 1 EACH IV SCH (12:00)
[2018-09-01] MEDS: FUROSEMIDE 20 MG TABLET PO SCH (13:27)
[2018-09-01] MEDS: POTASSIUM CHLORIDE RIDER 10 MEQ in PREMIX 1 EACH IV SCH ×2 (13:28→16:16)
[2018-09-01] MEDS: ASPIRIN EC 325 MG TABLET PO SCH (16:21)
[2018-09-01] MEDS ORDERED: LORazepam 2 MG/1 ML VIAL IV PRN (17:14)
[2018-09-01 19:22] LABS: Apearance,Urine Slightly Hazy (Clear); Bilirubin,Urine Negative (Negative); Blood, Urine Moderate mg/dL (Negative); Glucose,Urine (UA) Negative (Negative); Ketones,Urine 20 mg/dL (Negative); Nitrite,Urine Positive (Negative); Protein,Urine Negative; Urine Color Yellow (Yellow); Urine Specific Gravity 1.014 (1.001-1.035); Urine Urobilinogen < 2.0 EU/DL (0.2-1.0)
[2018-09-01] MEDS: cefTRIAXone 1,000 MG in SYRINGE 1 EACH IV SCH (19:32)
[2018-09-01 19:53] LABS: Bacteria,Urine Many /HPF (Few); Squamous Epithelial Cell,Urine Many /HPF (0-10); WBC,Urine 20-30 /HPF (0-6)
[2018-09-01] MEDS ORDERED: QUEtiapine 25 MG TABLET PO SCH (21:00)
[2018-09-01] MEDS: POTASSIUM CHLORIDE 20 MEQ TABLET PO SCH (21:31)
[2018-09-01] MEDS: DONEPEZIL 5 MG TABLET PO SCH (21:31)
[2018-09-01] MEDS: QUEtiapine 25 MG TABLET PO SCH (21:33)
[2018-09-01] MEDS: SODIUM CHLOR 0.45% KCL 20 MEQ 20 MEQ/1,000 ML BAG IV SCH (23:26)
[2018-09-02 06:07] LABS: Basophils % 0.3 % (0.0-0.8); Eosinophils % 0.7 % (0.00-10.9); Hematocrit 31.8 VOL% (35.7-47.0); Immature Granulocytes % 0.5 %; Immature Granulocytes Absolute 0.03 #; Mean Corpuscular Volume 91.9 FL (87-102); Mean Platelet Volume 9.7 FL (9.6-12.0); Monocytes % 7.9 % (1.7-12.7); Neutrophils % 73.6 % (38.7-73.9); Red Blood Count 3.46 MC/CUMM (3.8-5.5); Red Cell Distribution Width 22.4 % (9.3-17.3); White Blood Count 6.1 T/CUMM (4-12)
[2018-09-02 06:11] LABS: Hemoglobin 10.8 GM/DL (12.0-16.0); Platelet Count 255 T/CUMM (130-400)
[2018-09-02] MEDS: SODIUM CHLOR 0.45% KCL 20 MEQ 20 MEQ/1,000 ML BAG IV SCH ×2 (06:11→20:38)
[2018-09-02 06:19] LABS: Albumin 2.5 G/DL (3.4-5.0); Bilirubin,Total 1.3 MG/DL (0.2-1.0); Calcium 7.4 MG/DL (8.5-10.1); Ferritin 91.7 ng/ml (8-252); Osmolality,Calculated 269.1 MOS/KG (273-304); Risk Ratio 2.81; Total Protein 5.5 G/DL (6.4-8.3); VLDL CHOLESTEROL 22.6 MG/DL
[2018-09-02 06:24] LABS: Hypochromasia 1+; Platelet Estimate Adequate
[2018-09-02 06:25] LABS: Macrocytosis Slight
[2018-09-02] MEDS ORDERED: MAGNESIUM SULF RIDER 2 GM in PREMIX 1 EACH IV PRN (08:22)
[2018-09-02] MEDS ORDERED: MAGNESIUM SULF RIDER 4 GM in PREMIX 1 EACH IV PRN (08:29)
[2018-09-02] MEDS: POTASSIUM CHLORIDE 20 MEQ TABLET PO SCH ×2 (09:22→20:41)
[2018-09-02] MEDS: QUEtiapine 25 MG TABLET PO SCH ×3 (09:22→20:43)
[2018-09-02] MEDS: ASPIRIN EC 325 MG TABLET PO SCH (09:22)
[2018-09-02] MEDS: FUROSEMIDE 20 MG TABLET PO SCH (09:22)
[2018-09-02] MEDS: ESTROGENS (CONJ) 0.625 MG TABLET PO SCH (09:22)
[2018-09-02] MEDS: cefTRIAXone 1,000 MG in SYRINGE 1 EACH IV SCH (09:22)
[2018-09-02] MEDS: POTASSIUM CHLORIDE RIDER 10 MEQ in PREMIX 1 EACH IV SCH ×2 (14:00→15:32)
[2018-09-02] MEDS ORDERED: POTASSIUM CHLORIDE RIDER 10 MEQ in PREMIX 1 EACH IV SCH (15:30)
[2018-09-02] MEDS: ONDANSETRON 4 MG/2 ML VIAL IV PRN (20:39)
[2018-09-02] MEDS: DONEPEZIL 5 MG TABLET PO SCH (20:41)
[2018-09-03 04:47] LABS: Basophils % 0.2 % (0.0-0.8); Eosinophils % 0.2 % (0.00-10.9); Hematocrit 25.1 VOL% (35.7-47.0); Hemoglobin 8.3 GM/DL (12.0-16.0); Immature Granulocytes % 0.7 %; Immature Granulocytes Absolute 0.04 #; Lymphocytes # 1.2 10*3/uL (1.4-4.0); Lymphocytes % 19.2 % (21.3-54.2); Mean Corpuscular HGB Conc 33.1 GM/DL (32-36); Mean Platelet Volume 10.4 FL (9.6-12.0); NRBC # 0.02 10*3/uL; Neutrophils % 71.7 % (38.7-73.9); Platelet Count 255 T/CUMM (130-400); Red Cell Distribution Width 22.4 % (9.3-17.3); White Blood Count 6.1 T/CUMM (4-12)
[2018-09-03 05:05] LABS: Albumin 2.1 G/DL (3.4-5.0); Bilirubin,Total 0.7 MG/DL (0.2-1.0); Calcium 7.2 MG/DL (8.5-10.1); Osmolality,Calculated 275.1 MOS/KG (273-304); Total Protein 4.7 G/DL (6.4-8.3)
[2018-09-03 05:46] LABS: Platelet Estimate Adequate; Polychromasia Few
[2018-09-03] MEDS ORDERED: MAGNESIUM CHLORIDE 64 MG TABLET PO SCH (09:00)
[2018-09-03] MEDS ORDERED: SPIRONOLACTONE 25 MG TABLET PO SCH (09:00)
[2018-09-03] MEDS ORDERED: SULFAMETHOX/TRIMETHOPRIM 800-160 MG TABLET PO SCH (09:00)
[2018-09-03] MEDS ORDERED: POTASSIUM CHLORIDE 10 MEQ TABLET PO SCH (09:00)
[2018-09-03] MEDS: ONDANSETRON 4 MG/2 ML VIAL IV PRN (09:26)
[2018-09-03] MEDS: cefTRIAXone 1,000 MG in SYRINGE 1 EACH IV SCH (09:28)
[2018-09-03] MEDS: SODIUM CHLOR 0.45% KCL 20 MEQ 20 MEQ/1,000 ML BAG IV SCH (09:29)
[2018-09-03] MEDS: FUROSEMIDE 20 MG TABLET PO SCH (09:31)
[2018-09-03] MEDS: ESTROGENS (CONJ) 0.625 MG TABLET PO SCH (09:31)
[2018-09-03] MEDS: QUEtiapine 25 MG TABLET PO SCH (09:31)
[2018-09-03] MEDS: ASPIRIN EC 325 MG TABLET PO SCH (09:31)
[2018-09-03 12:12] VITALS: BP 96/54
== END 2018-09-03 13:10 | disposition home health service (06) | DRG 57 ==
LOC: EDUNIT# → EDBD → N.ED 21:47 → N.EDINP 09-01 00:24 → N.2E 09-01 00:58
PROVIDERS: ADMIT Family Medicine; ATTEND Family Medicine

== ENCOUNTER 2018-09-06 12:54 | Inpatient (IN) ==
[2018-09-06] MEDS ORDERED: PANTOPRAZOLE 40 MG VIAL IV STA (13:39)
[2018-09-06] MEDS ORDERED: SODIUM CHLORIDE 0.9% 500 ML IV STA (13:39)
[2018-09-06 14:09] LABS: Basophils % 0.2 % (0.0-0.8); Hematocrit 18.9 VOL% (35.7-47.0); Immature Granulocytes % 1.5 %; Immature Granulocytes Absolute 0.08 #; Lymphocytes # 0.6 10*3/uL (1.4-4.0); Lymphocytes % 11.8 % (21.3-54.2); Mean Corpuscular HGB Conc 32.3 GM/DL (32-36); Mean Corpuscular Volume 96.4 FL (87-102); Mean Platelet Volume 10.3 FL (9.6-12.0); Monocytes % 4.1 % (1.7-12.7); NRBC # 0.18 10*3/uL; Neutrophils % 82.4 % (38.7-73.9); Platelet Count 223 T/CUMM (130-400); Red Blood Count 1.96 MC/CUMM (3.8-5.5); Red Cell Distribution Width 21.5 % (9.3-17.3); White Blood Count 5.4 T/CUMM (4-12)
[2018-09-06 14:14] LABS: Hemoglobin 6.1 GM/DL (12.0-16.0)
[2018-09-06 14:18] LABS: INR 1.2; PT Patient Result 12.8 SECS; Partial Thromboplastin Time 21.7 SECS (0-40)
[2018-09-06 14:28] LABS: Ferritin 92.2 ng/ml (8-252)
[2018-09-06 14:29] LABS: Albumin 2.5 G/DL (3.4-5.0); Bilirubin,Total 0.4 MG/DL (0.2-1.0); Calcium 7.7 MG/DL (8.5-10.1); Osmolality,Calculated 281.8 MOS/KG (273-304); Total Protein 5.3 G/DL (6.4-8.3)
[2018-09-06] MEDS ORDERED: SODIUM CHLORIDE 0.9% 1,000 ML IV PRN (14:51)
[2018-09-06] MEDS ORDERED: ONDANSETRON 4 MG/2 ML VIAL IV PRN (14:59)
[2018-09-06] MEDS ORDERED: ACETAMINOPHEN 325 MG TABLET PO PRN (14:59)
[2018-09-06] MEDS ORDERED: LORazepam 2 MG/1 ML VIAL IV STA (15:48)
[2018-09-06] MEDS: QUEtiapine 25 MG TABLET PO SCH (20:35)
[2018-09-06] MEDS: DOCUSATE SODIUM 100 MG CAPSULE PO SCH (20:35)
[2018-09-06] MEDS: MAGNESIUM CHLORIDE 64 MG TABLET PO SCH (20:35)
[2018-09-06] MEDS ORDERED: DONEPEZIL 5 MG TABLET PO SCH (21:00)
[2018-09-07] MEDS ORDERED: SODIUM CHLORIDE 0.9% 1,000 ML IV PRN (01:17)
[2018-09-07 05:55] LABS: Basophils % 0.2 % (0.0-0.8); Eosinophils % 0.4 % (0.00-10.9); Hematocrit 27.3 VOL% (35.7-47.0); Hemoglobin 9.1 GM/DL (12.0-16.0); Immature Granulocytes % 1.6 %; Immature Granulocytes Absolute 0.07 #; Lymphocytes # 0.7 10*3/uL (1.4-4.0); Lymphocytes % 15.1 % (21.3-54.2); Mean Corpuscular HGB Conc 33.3 GM/DL (32-36); Mean Corpuscular Volume 87.2 FL (87-102); Mean Platelet Volume 10.4 FL (9.6-12.0); Monocytes % 2.4 % (1.7-12.7); NRBC # 0.11 10*3/uL; Neutrophils % 80.3 % (38.7-73.9); Platelet Count 133 T/CUMM (130-400); Red Blood Count 3.13 MC/CUMM (3.8-5.5); Red Cell Distribution Width 18.2 % (9.3-17.3); White Blood Count 4.5 T/CUMM (4-12)
[2018-09-07 06:12] LABS: Albumin 2.3 G/DL (3.4-5.0); Bilirubin,Total 1.2 MG/DL (0.2-1.0); Calcium 7.7 MG/DL (8.5-10.1); Osmolality,Calculated 285.4 MOS/KG (273-304); Total Protein 4.8 G/DL (6.4-8.3)
[2018-09-07] MEDS ORDERED: QUEtiapine 25 MG TABLET PO SCH (09:00)
[2018-09-07] MEDS: POTASSIUM CHLORIDE 10 MEQ TABLET PO SCH ×2 (09:57→10:54)
[2018-09-07] MEDS: DOCUSATE SODIUM 100 MG CAPSULE PO SCH ×3 (09:57→20:36)
[2018-09-07] MEDS: QUEtiapine 25 MG TABLET PO SCH ×3 (09:57→20:36)
[2018-09-07] MEDS: MAGNESIUM CHLORIDE 64 MG TABLET PO SCH ×3 (09:57→20:36)
[2018-09-07] MEDS: PANTOPRAZOLE 40 MG TABLET PO SCH ×2 (09:57→10:54)
[2018-09-07] MEDS ORDERED: HALOPERIDOL 5 MG/ML AMP IM ONE (11:41)
[2018-09-07] MEDS ORDERED: POLYETHYLENE GLYCOL 3350/ELECTROLYTES 4,000 ML BOTTLE PO ONE (15:00)
[2018-09-07] MEDS ORDERED: HALOPERIDOL 5 MG/ML AMP IV PRN (15:21)
[2018-09-07] MEDS: HALOPERIDOL 5 MG/ML AMP IM PRN (17:38)
[2018-09-07 18:52] LABS: Apearance,Urine CLEAR (Clear); Bacteria,Urine Occasional /HPF (Few); Bilirubin,Urine Negative (Negative); Blood, Urine Negative (Negative); Glucose,Urine (UA) Negative (Negative); Ketones,Urine 5 mg/dL (Negative); Mucus,Urine Occasional /LPF (Occasional); Nitrite,Urine Negative (Negative); Protein,Urine Negative; RBC,Urine 1 /HPF (0-4); Squamous Epithelial Cell,Urine Occasional /HPF (0-10); Urine Color Yellow (Yellow); Urine Specific Gravity 1.018 (1.001-1.035); Urine Urobilinogen < 2.0 EU/DL (0.2-1.0); WBC,Urine 1 /HPF (0-6)
[2018-09-08 04:37] LABS: Eosinophils % 1.7 % (0.00-10.9); Hematocrit 24.4 VOL% (35.7-47.0); Hemoglobin 8.1 GM/DL (12.0-16.0); Immature Granulocytes % 1.7 %; Immature Granulocytes Absolute 0.03 #; Lymphocytes # 0.3 10*3/uL (1.4-4.0); Lymphocytes % 16.5 % (21.3-54.2); Mean Corpuscular HGB Conc 33.2 GM/DL (32-36); Mean Corpuscular Volume 88.4 FL (87-102); Mean Platelet Volume 10.2 FL (9.6-12.0); Monocytes % 2.3 % (1.7-12.7); NRBC # 0.07 10*3/uL; Neutrophils % 77.8 % (38.7-73.9); Platelet Count 93 T/CUMM (130-400); Red Blood Count 2.76 MC/CUMM (3.8-5.5); Red Cell Distribution Width 18.7 % (9.3-17.3); White Blood Count 1.8 T/CUMM (4-12)
[2018-09-08 05:10] LABS: Albumin 2.2 G/DL (3.4-5.0); Calcium 7.3 MG/DL (8.5-10.1); Osmolality,Calculated 282.3 MOS/KG (273-304); Total Protein 4.6 G/DL (6.4-8.3)
[2018-09-08] MEDS ORDERED: MAGNESIUM CITRATE 300 ML BOTTLE PO ONE (06:07)
[2018-09-08 06:42] LABS: Anisocytosis 1+; Eosinophils 2 % (0-10); Lymphocytes 17 % (20-55); Platelet Estimate Decreased; Segmented Neutrophils 77 % (50-85); Total Cells Counted 100
[2018-09-08] MEDS ORDERED: LACTATED RINGERS 500 ML IV SCH (08:00)
[2018-09-08] MEDS ORDERED: PROPOFOL 200 MG/20 ML VIAL IV ONE (09:00)
[2018-09-08] MEDS ORDERED: PHENYLEPHRINE 1 MG/10 ML SYRINGE IV ONE (09:00)
[2018-09-08] MEDS ORDERED: LIDOCAINE 100 MG/5 ML SYRINGE ONE (09:00)
[2018-09-08] MEDS: HALOPERIDOL 5 MG/ML AMP IM PRN ×2 (11:25→19:42)
[2018-09-08] MEDS ORDERED: POLYETHYLENE GLYCOL 3350/ELECTROLYTES 4,000 ML BOTTLE PO ONE (15:00)
[2018-09-08] MEDS: DOCUSATE SODIUM 100 MG CAPSULE PO SCH ×2 (16:16→20:38)
[2018-09-08] MEDS: PANTOPRAZOLE 40 MG TABLET PO SCH (16:16)
[2018-09-08] MEDS: QUEtiapine 25 MG TABLET PO SCH ×2 (16:17→20:38)
[2018-09-08] MEDS: POTASSIUM CHLORIDE 10 MEQ TABLET PO SCH (17:13)
[2018-09-08] MEDS: MAGNESIUM CHLORIDE 64 MG TABLET PO SCH ×2 (17:13→20:38)
[2018-09-09 04:59] LABS: Hematocrit 24.7 VOL% (35.7-47.0); Hemoglobin 8.2 GM/DL (12.0-16.0); Immature Granulocytes % 0.7 %; Immature Granulocytes Absolute 0.01 #; Lymphocytes # 0.3 10*3/uL (1.4-4.0); Lymphocytes % 21.3 % (21.3-54.2); Mean Corpuscular HGB Conc 33.2 GM/DL (32-36); Mean Corpuscular Volume 87.9 FL (87-102); Mean Platelet Volume 11.3 FL (9.6-12.0); NRBC # 0.06 10*3/uL; Platelet Count 56 T/CUMM (130-400); Red Blood Count 2.81 MC/CUMM (3.8-5.5); Red Cell Distribution Width 17.9 % (9.3-17.3); White Blood Count 1.5 T/CUMM (4-12)
[2018-09-09 05:15] LABS: Calcium 7.6 MG/DL (8.5-10.1); Osmolality,Calculated 278.5 MOS/KG (273-304)
[2018-09-09 05:24] LABS: Albumin 2.3 G/DL (3.4-5.0); Bilirubin,Total 0.8 MG/DL (0.2-1.0); Calcium 7.5 MG/DL (8.5-10.1); Osmolality,Calculated 282.3 MOS/KG (273-304); Thyroid Stimulating Hormone 0.813 uIU/ml (0.358-3.74); Total Protein 4.9 G/DL (6.4-8.3)
[2018-09-09 06:25] LABS: Band Neutrophils 1 % (0-10); Eosinophils 1 % (0-10); Lymphocytes 10 % (20-55); Myelocytes 1 %; Nucleated Red Blood Cells 3 (0-5); Segmented Neutrophils 84 % (50-85); Total Cells Counted 100
[2018-09-09 06:26] LABS: Anisocytosis 1+; Platelet Estimate Decreased; Tear Drop Cells Few
[2018-09-09 07:42] VITALS: BP 95/76
[2018-09-09] MEDS ORDERED: LORazepam 2 MG/1 ML VIAL IV PRN (07:49)
[2018-09-09] MEDS ORDERED: POTASSIUM CHLORIDE RIDER 10 MEQ in PREMIX 1 EACH IV PRN (07:51)
[2018-09-09] MEDS ORDERED: PANTOPRAZOLE 40 MG TABLET PO SCH (09:00)
[2018-09-09] MEDS ORDERED: ESTROGENS (CONJ) 0.625 MG TABLET PO SCH (09:00)
[2018-09-09] MEDS ORDERED: POTASSIUM CHLORIDE 10 MEQ TABLET PO SCH (09:00)
[2018-09-09] MEDS ORDERED: QUEtiapine 25 MG TABLET PO SCH (09:00)
[2018-09-09] MEDS: MAGNESIUM CHLORIDE 64 MG TABLET PO SCH (09:21)
[2018-09-09] MEDS: DOCUSATE SODIUM 100 MG CAPSULE PO SCH (09:22)
[2018-09-09 09:28] LABS: % Iron Saturation 10.3 % (18-50)
[2018-09-09 10:58] LABS: Folate > 24.0 NG/ML (5.4-24.0); Vitamin B12 638 PG/ML (211-911)
[2018-09-09] MEDS ORDERED: EPINEPHrine 1 MG/ML VIAL ONE ×2 (11:41→11:42)
== END 2018-09-09 11:47 | disposition expired | DRG 377 ==
LOC: EDBD → EDUNIT# → N.ED 12:54 → N.EDINP 14:59 → N.2E 16:35
PROVIDERS: ADMIT Family Medicine; ATTEND Family Medicine